=== PATIENT | female | born 1965 | race Caucasian/White ===

== ENCOUNTER → 2018-07-01 | Day surgery (SDC) | payer BC ==
[2018-05-29 12:28] LABS: BASOPHILS # (AUTO) 0.1 (0.0-0.1); BASOPHILS % 0.7 % (0.0-1.0); EOSINOPHILS # (AUTO) 0.2 (0.0-0.4); EOSINOPHILS % 1.8 % (0.0-6.0); HEMATOCRIT 45.9 % (34.2-44.1); HEMOGLOBIN 15.5 g/dL (12.0-16.0); LYMPHOCYTES % 43.4 % (18.0-39.1); MEAN CORPUSCULAR HEMOGLOBIN 32.5 pg (28-32); MEAN CORPUSCULAR HGB CONC 33.8 g/dL (31-35); MEAN CORPUSCULAR VOLUME 96.2 fL (81-99); MONOCYTES # (AUTO) 0.6 (0.2-0.8); MONOCYTES % 6.4 % (4.4-11.3); NEUTROPHILS # (AUTO) 4.4 (2.1-6.9); NEUTROPHILS % 47.5 % (38.7-80.0); PLATELET COUNT 277 x10e3/uL (140-360); RED BLOOD COUNT 4.77 x10e6/uL (3.6-5.1); RED CELL DISTRIBUTION WIDTH 13.2 % (11.7-14.4)
[~2018-07-01] MED LIST: ALBUTEROL0.63 MG/3 INH; CLONAZEPAM0.5 MG PO; FENTANYL CITRATE/PF 100MCG/2 ML INJ ONE; GLUCAGON FOR INJ 1 MG VIAL ONE; HYOSCYAMINE SULFATE 0.5 MG/ML INJ ONE; KETAMINE HCL INJ 50 MG/ML 10 ML VIAL ONE; LOVASTATIN40 MG PO; METFORMIN HCL500 MG PO; MIDAZOLAM HCL 5 MG/ML VIAL ONE; NORCO 7.5-3251 EACH PO; PROMETHAZINE HC25 M1 PO; PROPOFOL IV EMULSION 10 MG/ML 50 ML VIAL ONE; VICODIN PO
[2018-07-01 11:50] VITALS: BP 140/85
--- NOTE | 2018-07-01 12:25 | Operative Report ---
DATE OF PROCEDURE: 07/01/2018 SURGEON: Catracho Enrique MD PROCEDURES: Esophagogastroduodenoscopy with biopsies and colonoscopy with polypectomy and biopsies. INDICATIONS FOR EGD: Heartburn, bloating. INDICATIONS FOR COLONOSCOPY: Colorectal cancer screening. MEDICATIONS: The patient was done under MAC, please see anesthesiologist's note. PROCEDURE IN DETAIL: With the patient in left lateral decubitus position, the flexible fiberoptic Olympus gastroscope was introduced into the esophagus under direct visualization without any difficulty. There was a minute nodule noted in the cervical esophagus and was biopsied. There was some patchy erythema noted in distal esophagus. The scope was then advanced with ease into the stomach. Mucosa overlying the antrum and the body revealed some patchy erythema and low-grade to moderate edema and biopsies were obtained and sent to stain for H pylori. Pylorus appeared to be of normal contour and shape, was intubated with ease and the scope was advanced all the way to the second portion of the duodenum. Biopsies were obtained from the proximal second portion and duodenal bulb to rule out sprue. The scope was then withdrawn back into the stomach and retroflexed and mucosa overlying the fundus and cardia appeared to be within normal limits. The scope was then straightened out. The stomach was decompressed. Scope was subsequently withdrawn. The patient tolerated the procedure well. IMPRESSION: 1. Minute nodule in the cervical esophagus, biopsied. 2. Distal esophagitis. 3. Gastritis, biopsied. Biopsies sent to stain for Helicobacter pylori. 4. Rule out sprue. PLAN: Follow up histology. Initiate Protonix 40 mg one p.o. q.a.m. a.c. PROCEDURE IN DETAIL: The patient was then turned around after adequate lubrication of the anal canal, flexible fiberoptic Olympus colonoscope was inserted into the rectum with ease and advanced all the way to the cecum. The scope was then withdrawn slowly. Mucosa overlying the cecum, ascending colon, and transverse colon appeared to be within normal limits. Diverticular disease was noted to involve the descending and the sigmoid colon. The sigmoid colon was excessively spastic and irritable and could not distend adequately despite optimal air insufflation and administration or spasmodic agents. Overlying mucosa revealed some patchy erythema and [id number] edema and biopsies were obtained. Similar findings were noted in the proximal rectum. Biopsies were obtained. One polyp was snared from the sigmoid and one polyp was hot biopsied from the distal rectum. The scope was then retroflexed into the distal rectum and small internal hemorrhoids were noted, none of which was actively bleeding. The scope was then straightened out, it was subsequently withdrawn. The patient tolerated the procedure well. IMPRESSION: 1. Diverticulosis. 2. Proctosigmoiditis, mild. 3. Sigmoid colon polyp, snared. 4. Rectal polyp, hot biopsied. 5. Internal hemorrhoids, none actively bleeding. PLAN: Follow up histology. Initiate VSL#3 one p.o. daily and Bentyl 10 mg one p.o. t.i.d. The patient might benefit from a followup colonoscopy in 3 to 5 years. Catracho Enrique MD [facility] [place][id number] cc: Enrique Booth DO
--- OUTSIDE RECORDS SUMMARY | 2018-07-03 14:04 | XMS REPORT | Summary of Care ---
Author Organization Unknown Address Unknown Phone Unavailable Encounter HQ Encntr_alias(ROLANDA) [id number] Date(s): 08/22/13 - 08/22/13 [facility] Outpatient Imaging - [address] [address] [place] Discharge Disposition: Home Physician Attending: Jeovanny Sandres MD Reason for Visit 724.5 - BACKACHE NOS Problem List No data available for this section Allergies, Adverse Reactions, Alerts No data available for this section Medications No data available for this section Medications Administered During Your Visit No data available for this section Immunizations No data available for this section
--- OUTSIDE RECORDS SUMMARY | 2018-07-03 14:04 | XMS REPORT | Summary of Care ---
Author Organization Unknown Address Unknown Phone Unavailable Encounter HQ Encntr_alias([facility]) [id number] Date(s): 07/03/14 - 07/03/14 [facility] Outpatient Imaging - [address] [address] [phone] Discharge Disposition: Home Physician Attending: Jeovanny Sanders MD Vital Signs No data available for this section Problem List No data available for this section Allergies, Adverse Reactions, Alerts No data available for this section Medications No data available for this section Results No data available for this section Immunizations No data available for this section Procedures No data available for this section Social History No data available for this section Assessment and Plan No data available for this section
--- OUTSIDE RECORDS SUMMARY | 2018-07-03 14:04 | XMS REPORT | Clinical Summary ---
Author Author [facility] Address Unknown Phone Unavailable Care Team Providers Care Service Agent Name Role Phone Asked, No Pcp PCP Unavailable Allergies No Known Allergies Medications End Date Status Medication Sig Dispensed Refills Start Date Active metFORMIN (GLUCOPHAGE) Take 500 mg 0 500 mg tablet by mouth nightly. Active lovastatin (MEVACOR) 40 Take 40 mg by 0 MG tablet mouth nightly. Active clonAZEPAM (KlonoPIN) 0.5 Take 0.5 mg 0 MG tablet by mouth nightly. Active DOCOSAHEXANOIC ACID/EPA Take 1,200 mg 0 (FISH OIL ORAL) by mouth every morning. Active albuterol (ACCUNEB) 1.25 Take 1 ampule 0 mg/3 mL nebulizer by solution nebulization as needed for wheezing. Active etodolac (LODINE) 400 MG TK 1 T PO BID 0 tablet FOR 15 DAYS 8 PRF PAIN 08/10/2017 Discontinued mupirocin (BACTROBAN) 2 % Apply to both 22 g 0 ointment nostrils 8 twice a day starting 2 days prior to surgery and morning of surgery 07/28/2017 aspirin (ECOTRIN) 325 MG Take 1 tablet 60 tablet 0 enteric coated tablet (325 mg 8 total) by mouth 2 (two) times a day for 30 days. 07/16/2017 cyclobenzaprine Take 1 tablet 30 tablet 0 (FLEXERIL) 10 mg tablet (10 mg total) 8 by mouth 2 (two) times a day as needed for muscle spasms for up to 15 days. 07/13/2017 acetaminophen-codeine Take 1 tablet 30 tablet 0 (TYLENOL WITH CODEINE #3) by mouth 8 300-30 mg per tablet every 6 (six) hours as needed for moderate pain for up to 7 days. 07/31/2017 Discontinued acetaminophen-codeine Take 1-2 30 tablet 0 (TYLENOL WITH CODEINE #3) tablets by 8 300-30 mg per tablet mouth every 6 (six) hours as needed for moderate pain for up to 10 days. 08/10/2017 Discontinued acetaminophen-codeine Take 1-2 30 tablet 0 (TYLENOL WITH CODEINE #3) tablets by 8 300-30 mg per tablet mouth every 6 (six) hours as needed for moderate pain for up to 10 days. 09/09/2017 aspirin 81 mg chewable Chew 1 tablet 60 tablet 0 tablet (81 mg total) 8 2 (two) times a day for 30 days. 09/09/2017 docusate sodium (COLACE) Take 1 60 capsule 0 100 MG capsule capsule (100 8 mg total) by mouth 2 (two) times a day for 30 days. 09/09/2017 cyclobenzaprine Take 1 tablet 30 tablet 0 (FLEXERIL) 10 mg tablet (10 mg total) 8 by mouth 3 (three) times a day as needed for muscle spasms for up to 30 days. 09/04/2017 acetaminophen-codeine Take 1-2 30 tablet 0 (TYLENOL WITH CODEINE #3) tablets by 8 300-30 mg per tablet mouth every 6 (six) hours as needed for moderate pain for up to 10 days. 09/12/2017 Discontinued acetaminophen-codeine Take 1-2 30 tablet 0 (TYLENOL WITH CODEINE #3) tablets by 8 300-30 mg per tablet mouth every 6 (six) hours as needed for moderate pain for up to 10 days. 09/25/2017 Discontinued acetaminophen-codeine Take 1 tablet 30 tablet 0 (TYLENOL WITH CODEINE #3) by mouth 8 300-30 mg per tablet every 6 (six) hours as needed for moderate pain for up to 10 days. 10/06/2017 Discontinued acetaminophen-codeine Take 1 tablet 30 tablet 0 (TYLENOL WITH CODEINE #3) by mouth 8 300-30 mg per tablet every 6 (six) hours as needed for moderate pain for up to 10 days. 10/17/2017 Discontinued acetaminophen-codeine Take 1 tablet 30 tablet 0 (TYLENOL WITH CODEINE #3) by mouth 8 300-30 mg per tablet every 6 (six) hours as needed for moderate pain for up to 10 days. 10/31/2017 Discontinued acetaminophen-codeine Take 1 tablet 30 tablet 0 201 (TYLENOL WITH CODEINE #3) by mouth 8 300-30 mg per tablet every 6 (six) hours as needed for moderate pain for up to 10 days. 11/01/2017 Discontinued acetaminophen-codeine Take 1 tablet 30 tablet 0 (TYLENOL WITH CODEINE #3) by mouth 8 300-30 mg per tablet every 6 (six) hours as needed for moderate pain for up to 10 days. 11/11/2017 acetaminophen-codeine Take 1 tablet 30 tablet 0 (TYLENOL WITH CODEINE #3) by mouth 8 300-30 mg per tablet every 6 (six) hours as needed for moderate pain for up to 10 days. 11/24/2017 acetaminophen-codeine Take 1 tablet 30 tablet 0 (TYLENOL WITH CODEINE #3) by mouth 8 300-30 mg per tablet every 6 (six) hours as needed for moderate pain for up to 10 days. 12/13/2017 traMADol (ULTRAM) 50 mg Take 1 tablet 40 tablet 0 tablet (50 mg total) 8 by mouth every 6 (six) hours as needed for moderate pain for up to 14 days. 01/21/2018 cyclobenzaprine Take 1 tablet 40 tablet 3 (FLEXERIL) 10 mg tablet (10 mg total) 8 by mouth 2 (two) times a day as needed for muscle spasms for up to 30 days. 12/29/2017 amoxicillin (AMOXIL) 500 Take 4 12 capsule 2 MG capsule capsules 1 8 hour prior to dental appt. Active Problems Problem Noted Date Arthritis of left hip 08/07/2017 Arthritis of right hip 06/24/2017 Encounters Care Team Description Date Type Specialty Jaguar Cuellar MD Status post left hip replacement (Primary Dx) 12/22/2017 Office Visit Orthopedic Surgery Aspen Chamorro MA 12/22/2017 Orders Only Orthopedic Surgery Aspen Chamorro MA 12/22/2017 Orders Only Orthopedic Surgery Aspen Chamorro, MARBELLA Left hip pain (Primary Dx) 12/22/2017 Orders Only Orthopedic Surgery Kacey Flores, MARBELLA 2017 Orders Only Orthopedic Surgery IncJaguar alas MD 11/25/2017 Refill Orthopedic Surgery Kacey Flores, MARBELLA 11/14/2017 Orders Only Orthopedic Surgery IncJaguar alas MD 11/14/2017 Refill Orthopedic Surgery Kacey Flores, MARBELLA 11/01/2017 Orders Only Orthopedic Surgery IncJaguar alas MD 10/31/2017 Refill Orthopedic Surgery IncJaguar alas MD 10/28/2017 Refill Orthopedic Surgery IncJaguar alas MD 10/28/2017 Refill Orthopedic Surgery Jaguar Cuellar MD 10/27/2017 Refill Orthopedic Surgery IncJaguar alas MD 10/17/2017 Refill Orthopedic Surgery IncJaguar alas MD 10/06/2017 Refill Orthopedic Surgery IncJaguar alas MD 09/25/2017 Refill Orthopedic Surgery Jaguar Cuellar MD Status post left hip replacement (Primary Dx) 09/16/2017 Office Visit Orthopedic Surgery Jaguar Cuellar MD 09/12/2017 Refill Orthopedic Surgery Aspen Chamorro MA 09/02/2017 Orders Only Orthopedic Surgery Jaguar Cuellar MD 09/01/2017 Refill Orthopedic Surgery Jaguar Cuellar MD Status post left hip replacement (Primary Dx) 08/25/2017 Office Visit Orthopedic Surgery Aspen Chamorro MA 08/25/2017 Orders Only Orthopedic Surgery Jaguar Cuellar MD ARTHROPLASTY, HIP, TOTAL 08/09/2017 Surgery Orthopedic Surgery Radha Harrison, SOLUTIONS CONSULTANT 08/09/2017 Anesthesia Orthopedic Surgery Event Jaguar Cuellar MD Arthritis of left hip 08/09/2017 Hospital Orthopedic Surgery - Encounter 08/10/2017 Jaguar Cuellar MD Preop examination (Primary Dx) 08/02/2017 Pre-Admit Pre-Admission Testing Testing Appointment Jaguar Cuellar MD 07/31/2017 Refill Orthopedic Surgery Jaguar Cuellar MD Status post right hip replacement (Primary Dx) 07/21/2017 Office Visit Orthopedic Surgery Aspen Chamorro MA 07/21/2017 Orders Only Orthopedic Surgery Kacey Flores MA 07/06/2017 Orders Only Orthopedic Surgery after 07/02/2017 Social History Date Tobacco Use Types Packs/Day Years Used Current Every Day Smoker Cigarettes 1 20 Smokeless Tobacco: Never Used Tobacco Cessation: Ready to Quit: No; Counseling Given: No Comments: declined education materials Alcohol Use Drinks/Week oz/Week Comments No Sex Assigned at Date Recorded Not on file Industry Job Start Date Occupation Not on file Not on file Not on file Travel End Travel History Travel Start No recent travel history available. Last Filed Vital Signs Time Taken Vital Sign Reading 08/10/2017 8:40 AM CDT Blood Pressure 119/79 08/10/2017 8:40 AM CDT Pulse 96 08/10/2017 7:45 AM CDT Temperature 36.7 C (98.1 F) 08/10/2017 7:45 AM CDT Respiratory Rate 19 08/10/2017 8:40 AM CDT Oxygen Saturation 99% - Inhaled Oxygen - Concentration 08/25/2017 10:14 AM CDT Weight 84.4 kg (186 lb) 08/25/2017 10:14 AM CDT Height 175.3 cm (5' 9") 08/25/2017 10:14 AM CDT Body Mass Index 27.47 Plan of Treatment Health Maintenance Due Date Last Done Comments CERVICAL CANCER SCREENING 11/28/1988 BREAST CANCER SCREENING 11/28/2017 COLON CANCER SCREENING 11/28/2017 SHINGLES VACCINES (#1) 11/28/2017 INFLUENZA VACCINE 10/26/2018 Implants Device Identifier Shelf Expiration Date Model / Serial / Lot Implanted Type Area Manufactur er 05/23/2027 [id number] / / [id number] Shell [employer] Acetabular 54 - IPM Right: Hip BIOMET, [id number] [employer] Implanted: 06/27/2017 (Quantity not DEVICES on file) 02/09/2022 [id number] / / [id number] G7 Neutral E1 Liner 36mm F - IPM Right: Hip BIOMET, [id number] [employer] Implanted: 06/27/2017 (Quantity not DEVICES on file) 06/22/2026 [id number] / / [id number] Tprlc 133 Type1 Pps Ho 12.0, IPM Right: Hip BIOMET, Taperloc Complete Stem - [id number] [employer] Implanted: 06/27/2017 (Quantity not DEVICES on file) 12/02/2026 [id number] / / [id number] Cer Bioloxd Mod Hd 36mm -3 Nk - IPM Right: Hip BIOMET, [id number] [employer] Implanted: 06/27/2017 (Quantity not DEVICES on file) 06/27/2027 [id number] / / [id number] Shell [employer] Acetabular 54 - IPM Left: Hip BIOMET, [id number] [employer] Implanted: Qty: 1 on 08/09/2017 by Jaguar Smalls MD 06/15/2022 [id number] / / [id number] G7 Neutral E1 Liner 36mm F - IPM Left: Hip BIOMET, [id number] [employer] Implanted: Qty: 1 on 08/09/2017 by Jaguar Smalsl MD 09/02/2025 [id number] / / [id number] Tprlc 133 Type1 Pps Ho 12.0, IPM Left: Hip BIOMET, Taperloc Complete Stem - [id number] [employer] Implanted: Qty: 1 on 08/09/2017 by Jaguar Smalls MD 12/30/2026 [id number] / / [id number] Cer Bioloxd Mod Hd 36mm -3 Nk - IPM Left: Hip BIOMET, [id number] [employer] Implanted: Qty: 1 on 08/09/2017 by Jaguar Smalls MD 02/24/2027 [id number] / / [id number] Screw Bone Slf-Tap 6.5x20mm Trilogy Orthopedic Right: Hip [employer] - [id number] Trauma Implanted: Qty: 2 on 06/27/2017 by Jaguar Figueroa MD 03/27/2027 [id number] / / [id number] Screw Bone Slf-Tap 6.5x20mm Trilogy Orthopedic Left: Hip [employer] - [id number] Trauma Implanted: Qty: 1 on 08/09/2017 by Jaguar Figueroa MD 06/26/2027 [id number] / / [id number] Screw Bone Slf-Tap 6.5x20mm Trilogy Orthopedic Left: Hip [employer] - [id number] Trauma Implanted: Qty: 1 on 08/09/2017 by Jaguar Figueroa MD 06/26/2027 [id number] / / [id number] Screw Bone Slf-Tap 6.5x25mm Trilogy Orthopedic Left: Hip [employer] - [id number] Trauma Implanted: Qty: 1 on 08/09/2017 by Jaguar Figueroa MD Procedures Comments Procedure Name Priority Date/Time Associated Diagnosis XR HIP 2-3 VIEWS LEFT Routine 12/22/2017 Left hip pain 10:17 AM CDT CBC WITH PLATELET AND Routine 08/10/2017 DIFFERENTIAL 6:00 AM CDT ZZESTIMATED GFR Routine 08/10/2017 4:00 AM CDT PHOSPHORUS LEVEL Routine 08/10/2017 4:00 AM CDT MAGNESIUM LEVEL Routine 08/10/2017 4:00 AM CDT BASIC METABOLIC PANEL Routine 08/10/2017 4:00 AM CDT POC GLUCOSE Routine 08/09/2017 1:[address] AN ELECTIVE Routine 08/09/2017 ENDOTRACHEAL AIRWAY 1:45 PM CDT Procedure Note - Shakila Reyes, ANCHORMAN - 08/09/2017 1:45 PM CDT Airway Date/Time: 08/09/2017 10:35 AM Performed by: SHAKILA REYES Authorized by: JANEE DAVILA Location: OR Urgency: Elective Difficult Airway: No Preoxygena shaye with 100% O2: Yes C-spine Precaution s Maintained Throughout : Yes Mask Ventilatio n: Easy mask Final Airway Type: Endotrache al airway Final Endotrache al Airway: ETT Cuffed: Yes Technique Used: Direct laryngosco py Devices/Me thods Used in Placement: Intubatin g stylet Insertion Site: Oral Laryngosco pe Blade/Vide olaryngosc ope Blade Size: 2 ETT Size (mm): 7.0 Cuff at minimum occlusion pressure: Yes Measured from: Teeth ETT to Teeth (cm): 21 Placement Verified by: CO2 detection, direct visualizat ion and equal breath sounds Laryngosco pic view: Grade I - full view of glottis Rapid Sequence Induction (RSI): No Modified RSI: No Number of Attempts at Approach: 1 Easy atraumatic XR PELVIS 1 OR 2 VW Routine 08/09/2017 12:15 PM CDT SURGICAL PATHOLOGY Routine 08/09/2017 REQUEST 11:50 AM CDT POC GLUCOSE Routine 08/09/2017 11:37 AM CDT XR PELVIS 1 OR 2 VW Routine 08/09/2017 11:11 AM CDT ARTHROPLASTY, HIP, TOTAL 08/09/2017 Arthritis of left hip 10:30 AM CDT ANESTHESIA SPINAL BLOCK Routine 08/09/2017 10:04 AM CDT Procedure Note - Janee Davila MD - 08/09/2017 10:04 AM CDT Spinal Block Performed by: JANEE DAVILA Authorized by: JANEE DAVILA Patient Location: Pre-op Start Time: 08/09/2017 9:59 AM End Time: 08/09/2017 10:02 AM Reason for Block: at surgeon's request Staff: Anesthesio logist: JANEE DAVILA Performed by: Anesthesio logist patient identified , IV checked, site and side verified, risks and benefits discussed, procedure verified, surgical consent complete, patient position confirmed, monitors and equipment checked and pre-op evaluation complete TIme Out Performed: 08/09/2017 9:55 AM Spinal Block: Patient Position: Sitting Prep: Betadine Monitoring : Blood pressure monitoring , continuous pulse oximetry and heart rate Approach: Midline Interspace : L3-4 Injection Technique: Single injection Needle: Needle Type: Pencil-tip Needle Gauge: 25 G Assessment : Coagulatio n status: Coagulatio n status verified Block assessment : No apparent complicati ons and patient tolerated procedure well Notes: X 1 attempt @ 5cm POC GLUCOSE Routine 08/09/2017 9:38 AM CDT URINALYSIS SCREEN AND Routine 08/02/2017 MICROSCOPY, WITH REFLEX 3:25 PM CDT TO CULTURE ZZESTIMATED GFR Routine 08/02/2017 3:22 PM CDT CBC HEMOGRAM Routine 08/02/2017 Preop examination 3:22 PM CDT TYPE AND SCREEN Routine 08/02/2017 Preop examination 3:22 PM CDT BASIC METABOLIC PANEL Routine 08/02/2017 Preop examination 3:22 PM CDT URINE CULTURE Routine 08/02/2017 3:05 PM CDT after 07/02/2017 Results * XR Hip 2-3 View Left (12/22/2017 10:17 AM CDT) Narrative Performed At [facility] Hip x-rays show bilateral hip arthroplasties in place. All components appear stable. Performing Organization Address City/State/Zipcode Phone Number [facility] [address] [place] [address] * CBC with platelet and differential (08/10/2017 6:00 AM CDT) WBC 15.14 (H) 4.50 - 11.00 k/uL [facility] DEPARTMENT OF PATHOLOGY AND GENOMIC MEDICINE RBC 3.82 (L) 4.20 - 5.50 m/uL [facility] DEPARTMENT OF PATHOLOGY AND GENOMIC MEDICINE HGB 12.4 12.0 - 16.0 g/dL [facility] DEPARTMENT OF PATHOLOGY AND GENOMIC MEDICINE HCT 37.5 37.0 - 47.0 % [facility] DEPARTMENT OF PATHOLOGY AND GENOMIC MEDICINE MCV 98.2 82.0 - 100.0 fL [facility] DEPARTMENT OF PATHOLOGY AND GENOMIC MEDICINE MCH 32.5 27.0 - 34.0 pg [facility] DEPARTMENT OF PATHOLOGY AND GENOMIC MEDICINE MCHC 33.1 31.0 - 37.0 g/dL [facility] DEPARTMENT OF PATHOLOGY AND GENOMIC MEDICINE RDW - SD 47.9 37.0 - 55.0 fL [facility] DEPARTMENT OF PATHOLOGY AND GENOMIC MEDICINE MPV 10.2 8.8 - 13.2 fL [facility] DEPARTMENT OF PATHOLOGY AND GENOMIC MEDICINE Platelet count 272 150 - 400 k/uL [facility] DEPARTMENT OF PATHOLOGY AND GENOMIC MEDICINE Nucleated RBC 0.00 /100 WBC [facility] DEPARTMENT OF PATHOLOGY AND GENOMIC MEDICINE Neutrophils 70.1 (H) 39.0 - 69.0 % [facility] DEPARTMENT OF PATHOLOGY AND GENOMIC MEDICINE Lymphocytes 20.9 (L) 25.0 - 45.0 % [facility] DEPARTMENT OF PATHOLOGY AND GENOMIC MEDICINE Monocytes 8.4 0.0 - 10.0 % [facility] DEPARTMENT OF PATHOLOGY AND GENOMIC MEDICINE Eosinophils 0.0 0.0 - 5.0 % [facility] DEPARTMENT OF PATHOLOGY AND GENOMIC MEDICINE Basophils 0.1 0.0 - 1.0 % [facility] DEPARTMENT OF PATHOLOGY AND GENOMIC MEDICINE Immature granulocytes 0.5Comment: "Immature 0.0 - 1.0 % [facility] DEPARTMENT OF granulocytes" (promyelocytes, PATHOLOGY AND myelocytes, metamyelocytes) GENOMIC MEDICINE Specimen Blood Performing Organization Address City/[facility] [place] [address] [facility] * Estimated GFR (08/10/2017 4:00 AM CDT) Only the most recent of 2 results within the time period is included. GFR Non Af Amer >90 mL/min/1.73 m2 [facility] DEPARTMENT OF PATHOLOGY AND GENOMIC MEDICINE GFR Af Amer >90 mL/min/1.73 m2 [facility] DEPARTMENT OF Comment: PATHOLOGY AND Chronic kidney disease: <60 GENOMIC MEDICINE mL/min/1.73m2 Kidney failure: <15 mL/min/1.73m2 The estimated GFR is calculated from the IDMS-traceable Modification of Diet in Renal Disease Equation. The accuracy of the calculation is poor when the creatinine is normal. Calculated values >90 mL/min/1.73m2 are not reported. This equation has not been validated in children (<18 years), women, the elderly (>70 years), or ethnic groups other than Caucasians and Americans. Specimen Plasma specimen Performing Organization Address City/[facility]/Zipcode Phone Number [address] * Phosphorus level (08/10/2017 4:00 AM CDT) Phosphorus 2.7 2.4 - 4.5 mg/dL [facility] DEPARTMENT PATHOLOGY AND [employer] MEDICINE Specimen Plasma specimen Performing Organization Address City/[facility]/Zipcode Phone Number [place] [address] PATHOLOGY AND GENOMIC MEDICINE * Magnesium level (08/10/2017 4:00 AM CDT) Magnesium 2.0 1.6 - 2.6 mg/dL [facility] DEPARTMENT OF PATHOLOGY AND GENOMIC MEDICINE Specimen Plasma specimen Performing Organization Address City/[facility] [place] [place] [address] PATHOLOGY AND GENOMIC MEDICINE * Basic metabolic panel (08/10/2017 4:00 AM CDT) Only the most recent of 2 results within the time period is included. Sodium 137 135 - 148 mEq/L [facility] DEPARTMENT OF PATHOLOGY AND GENOMIC MEDICINE Potassium 4.4 3.5 - 5.0 mEq/L [facility] DEPARTMENT OF PATHOLOGY AND GENOMIC MEDICINE Chloride 102 98 - 112 mEq/L [facility] DEPARTMENT OF PATHOLOGY AND GENOMIC MEDICINE CO2 23 (L) 24 - 31 mEq/L [facility] DEPARTMENT OF PATHOLOGY AND GENOMIC MEDICINE Anion gap 12@ANIO 7 - 15 mEq/L [facility] DEPARTMENT OF PATHOLOGY AND GENOMIC MEDICINE BUN 8 6 - 20 mg/dL [facility] DEPARTMENT OF PATHOLOGY AND GENOMIC MEDICINE Creatinine 0.6 0.5 - 0.9 mg/dL [facility] DEPARTMENT OF PATHOLOGY AND GENOMIC MEDICINE Glucose 179 (H) 65 - 99 mg/dL [facility] DEPARTMENT OF PATHOLOGY AND GENOMIC MEDICINE Calcium 8.6 8.3 - 10.2 mg/dL [facility] DEPARTMENT OF PATHOLOGY AND GENOMIC MEDICINE Specimen Plasma specimen Performing Organization Address [facility] [place] [address] PATHOLOGY AND GENOMIC MEDICINE * POC glucose (08/09/2017 1:48 PM CDT) Only the most recent of 3 results within the time period is included. POC glucose 157 (H) 65 - 99 mg/dL [facility] DEPARTMENT OF Comment: PATHOLOGY AND [facility] Notified RN GENOMIC MEDICINE Meter ID: [id number] ?Brass Molder Helper: Name not found in RALS Performing Organization Address City/[facility] [place] [address] PATHOLOGY AND GENOMIC MEDICINE * XR Pelvis 1 Or 2 Vw (08/09/2017 12:15 PM CDT) Only the most recent of 2 results within the time period is included. Narrative Performed At EXAMINATION:XR PELVIS 1 OR 2 VW [facility] CLINICAL HISTORY:Post Op COMPARISON:None. FINDINGS: Postoperative exam demonstrates placement of a right hip replacement. Fracture is not identified. Left hip replacement is noted as well. IMPRESSION: Postoperative exam. [facility]-[id number] Procedure Note Hm Interface, Radiology Results Incoming - 08/09/2017 1:09 PM CDT EXAMINATION: XR PELVIS 1 OR 2 VW CLINICAL HISTORY: Post Op COMPARISON: None. FINDINGS: Postoperative exam demonstrates placement of a right hip replacement. Fracture is not identified. Left hip replacement is noted as well. IMPRESSION: Postoperative exam. [facility]-[id number] Performing Organization Address City/[facility] Phone Number [facility] [address] [place] [address] * Surgical pathology request (08/09/2017 11:50 AM CDT) [facility] DEPARTMENT OF PATHOLOGY AND GENOMIC MEDICINE Surgical pathology report See link below for PDF Lab [facility] DEPARTMENT OF Report PATHOLOGY AND GENOMIC MEDICINE Result status This is Final Report to [facility] DEPARTMENT OF [id number] PATHOLOGY AND GENOMIC MEDICINE Performing Organization Address [facility] Phone Number [facility] DEPARTMENT OF [address] [place], [place] [id number] PATHOLOGY AND GENOMIC MEDICINE * Urinalysis screen and microscopy, with reflex to culture (08/02/2017 3:25 PM CDT) Specimen site Random void [facility] DEPARTMENT OF PATHOLOGY AND GENOMIC MEDICINE Color, UA Yellow [facility] DEPARTMENT OF PATHOLOGY AND GENOMIC MEDICINE Appearance, UA Clear [facility] DEPARTMENT OF PATHOLOGY AND GENOMIC MEDICINE Specific gravity, UA 1.020 1.001 - 1.035 [facility] DEPARTMENT OF PATHOLOGY AND GENOMIC MEDICINE pH, UA 5.0 5.0 - 8.5 [facility] DEPARTMENT OF PATHOLOGY AND GENOMIC MEDICINE Protein, UA Negative Negative [facility] DEPARTMENT OF PATHOLOGY AND GENOMIC MEDICINE Glucose, UA Negative Negative [facility] DEPARTMENT OF PATHOLOGY AND GENOMIC MEDICINE Ketones, UA Negative Negative [facility] DEPARTMENT OF PATHOLOGY AND GENOMIC MEDICINE Bilirubin, UA Negative Negative [facility] DEPARTMENT OF PATHOLOGY AND GENOMIC MEDICINE Blood, UA Negative Negative [facility] DEPARTMENT OF PATHOLOGY AND GENOMIC MEDICINE Nitrite, UA Negative Negative [facility] DEPARTMENT OF PATHOLOGY AND GENOMIC MEDICINE Urobilinogen, UA <2.0 <2.0 [facility] DEPARTMENT OF PATHOLOGY AND GENOMIC MEDICINE Leukocyte esterase, UA Negative Negative [facility] DEPARTMENT OF PATHOLOGY AND GENOMIC MEDICINE Epithelial cells, UA 3 /HPF [facility] DEPARTMENT OF PATHOLOGY AND GENOMIC MEDICINE WBC, UA 1 0 - 4 /HPF [facility] DEPARTMENT OF PATHOLOGY AND GENOMIC MEDICINE RBC, UA 1 0 - 5 /HPF [facility] DEPARTMENT OF PATHOLOGY AND GENOMIC MEDICINE Bacteria, UA Few None seen [facility] DEPARTMENT OF PATHOLOGY AND GENOMIC MEDICINE Yeast, UA None seen [facility] DEPARTMENT OF PATHOLOGY AND GENOMIC MEDICINE Yeast with pseudohyphae, None seen [facility] DEPARTMENT OF PATHOLOGY AND GENOMIC MEDICINE Specimen Urine Performing Organization Address City/[facility]/[place] [address] PATHOLOGY AND GENOMIC MEDICINE * CBC hemogram (08/02/2017 3:22 PM CDT) WBC 9.62 4.50 - 11.00 k/uL [facility] DEPARTMENT OF PATHOLOGY AND GENOMIC MEDICINE RBC 4.62 4.20 - 5.50 m/uL [facility] DEPARTMENT OF PATHOLOGY AND GENOMIC MEDICINE HGB 14.6 12.0 - 16.0 g/dL [facility] DEPARTMENT OF PATHOLOGY AND GENOMIC MEDICINE HCT 44.4 37.0 - 47.0 % [facility] DEPARTMENT OF PATHOLOGY AND GENOMIC MEDICINE MCV 96.1 82.0 - 100.0 fL [facility] DEPARTMENT OF PATHOLOGY AND GENOMIC MEDICINE MCH 31.6 27.0 - 34.0 pg [facility] [facility] DEPARTMENT OF PATHOLOGY AND GENOMIC MEDICINE MCHC 32.9 31.0 - 37.0 g/dL [facility] DEPARTMENT OF PATHOLOGY AND GENOMIC MEDICINE RDW - SD 47.5 37.0 - 55.0 fL [facility] DEPARTMENT OF PATHOLOGY AND GENOMIC MEDICINE MPV 10.3 8.8 - 13.2 fL [facility] DEPARTMENT OF PATHOLOGY AND GENOMIC MEDICINE Platelet count 312 150 - 400 k/uL [facility] DEPARTMENT OF PATHOLOGY AND GENOMIC MEDICINE Nucleated RBC 0.00 /100 WBC [facility] DEPARTMENT OF PATHOLOGY AND GENOMIC MEDICINE Specimen Blood Performing Organization Address City/[facility] Phone Number [facility] DEPARTMENT [address] [address] PATHOLOGY AND GENOMIC MEDICINE * Type and screen (08/02/2017 3:22 PM CDT) ABO grouping A [facility] DEPARTMENT OF PATHOLOGY AND GENOMIC MEDICINE Rh type NEG [facility] DEPARTMENT OF PATHOLOGY AND GENOMIC MEDICINE Antibody screen (gel) NEG [facility] DEPARTMENT OF PATHOLOGY AND GENOMIC MEDICINE Specimen Blood Performing Organization Address City/[facility]/Zipcode Phone Number [address] [address] PATHOLOGY AND GENOMIC MEDICINE * Urine culture (08/02/2017 3:05 PM CDT) Urine culture SEE COMMENTComment: [facility] DEPARTMENT OF Bacteriuria screen negative. PATHOLOGY AND GENOMIC MEDICINE Performing Organization Address City/State/Zipcode Phone Number [facility] DEPARTMENT OF [address] [place] [address] PATHOLOGY AND GENOMIC MEDICINE after 07/02/2017 Insurance Payer Benefit Subscriber ID Type Phone Address Plan / Group BCBS BCBS xxxxxxxxx PPO CHOICE PPO/HALE[employer]ETT PPO Advance Directives Patient has advance care planning documents on file. For more information, inge snell contact: Henrik Mejia [address] [place] [address]
--- OUTSIDE RECORDS SUMMARY | 2018-07-03 14:04 | XMS REPORT | Continuity of Care Document ---
Author Author Maira glo [facility] Interface Address Unknown Phone Unavailable Problems Problem Status Onset Date Classification Date Reported Comments Source Medications Medication Details Route Status Patient Instructions Ordering Provider Order Date Source Allergies, Adverse Reactions, Alerts Substance Category Reaction Severity Reaction type Status Date Reported Comments Source Immunizations Immunization Date Given Site Status Last Updated Comments Source Results Order Name Results Value Reference Range Date Interpretation Comments Source Spine cervical w/wo contrast MRI Spine cervical w/wo contrast MRI MRI CERVICAL SPINE WITHOUT AND WITH CONTRAST TECHNIQUE: Multiplanar multisequence imaging of the cervical spine was performed without and with administration of intravenous gadolinium. COMPARISON: 07/03/2014 radiograph exam. FINDINGS: Multilevel disc desiccation is seen. C2-C3: Moderate right facet osteoarthritis with mild right foraminal stenosis. No central canal stenosis. C3-C4: Moderate right facet osteoarthritis and small right foraminal osteophytes are present with moderate right foraminal stenosis. Minimal disc bulge without central canal stenosis. C4-C5: Minimal disc bulge with minimal central canal stenosis. Small foraminal osteophytes present with mild left facet osteoarthritis and minimal bilateral foraminal stenosis. C5-C6: 2.3 mm broad-based central disc protrusion with mild central canal stenosis and minimal cord indentation. Right foraminal osteophytes and UVJ arthrosis are present with mild right foraminal stenosis. Left facet osteoarthritis is also present with mild left foraminal stenosis. C6-C7: 4 mm left lateral recess and subarticular zone disc osteophyte complex with significant left lateral recess stenosis and mild to moderate central canal stenosis and mass effect on the cervical cord. Severe left foraminal stenosis and mild right foraminal stenosis are present. C7-T1: Minimal left foraminal osteophytes are present with mild left foraminal stenosis. No central canal stenosis. No abnormal enhancement is identified. The cervical cord signal is unremarkable without MRI evidence of myelopathy. IMPRESSION: 1. Multilevel disc degenerative disease and spondylosis. 2. C6-C7 prominent left lateral recess and symmetrical zone disc osteophyte complex with severe left lateral recess stenosis, mild to moderate central canal stenosis, severe left foraminal stenosis and mild mass effect on the cervical cord. No MRI evidence of cervical cord myelopathy. 3. C5-C6 Central disc protrusion with mild central canal stenosis and minimal cord indentation. Other levels of mild cervical canal stenosis are present. 4. Multilevel mild to moderate foraminal stenosis. 09/20/2014 - - Read by: Felipe Carey MD Dictated Date/time: 09/20/14 16:46 Electronically Signed by: Felipe Carey MD 09/20/14 17:55 [facility] Lumbar Comp w Bend views DX Spine Lumbar Comp w Bend views DX Exam: Lumbar Spine X-ray, 5 views Reason for Exam: Back Pain Comparison Exam: MRI lumbar spine 08/22/2013 Discussion: 5 non rib-bearing lumbar vertebral bodies are seen. Vertebral body heights are maintained. No spondylolisthesis or scoliosis. Advanced degenerative disc disease seen at the L1/L2 level and L5/S1 level. Flexion and extension views are unremarkable. No suspicious osteoblastic or osteolytic lesions. Note that a lumbar spine x-ray cannot rule out ligamentous injuries or spinal cord abnormalities. No dilated loops of bowel within the visualized portions of the abdomen and pelvis. Impression: 1. Advanced degenerative disc disease seen at the L1/L2 level and L5/S1 level. 07/03/2014 - - Read by: Celm Calabrese MD Dictated Date/time: 07/03/14 14:40 Electronically Signed by: Clem Calabrese MD 07/03/14 14:42 FINAL REPORT [facility] [place] Spine cervical series DX Spine cervical series DX Exam: Cervical spine x-ray, 5views Reason for Exam: Cervicalgia Comparison Exam: None Discussion: On lateral view, the cervical spine is seen from the C1 vertebral body level down through the C7/T1 junction. Vertebral body heights are maintained. No spondylolisthesis. Moderate degenerative disc disease seen within the mid and lower cervical spine. No suspicious osteoblastic or osteolytic lesions. Prevertebral soft tissue is within normal limits. On oblique views, the neuroforamina are unremarkable. Lateral masses of C1 and dens of C2 appear intact. Please note that a cervical spine x-ray cannot rule out ligamentous injuries or spinal cord abnormalities. Visualized portions of the lung apices are unremarkable. Impression: 1. Vertebral body heights are maintained. No spondylolisthesis. Moderate degenerative disc disease seen within the mid and lower cervical spine. 07/03/2014 - - Read by: Clem Calabrese MD Dictated Date/time: 07/03/14 14:14 Electronically Signed by: Clem Calabrese MD 07/03/14 14:16 FINAL REPORT [facility] [place] Spine lumbar w/wo contrast MRI Spine lumbar w/wo contrast MRI MRI LUMBAR SPINE WITHOUT AND WITH CONTRAST TECHNIQUE: Sagittal T1, sagittal T2 with fat saturation, axial T1 and axial T2 images were obtained. Intravenous gadolinium was given. COMPARISON: No prior exam. FINDINGS: The paravertebral soft tissues are normal. The conus medullaris terminates at the L1 level. Congenital shortened lumbar pedicles are seen. L1-L2: Significant disc space narrowing is seen with dorsal disc osteophyte complex, measuring 3.5 mm in the AP dimension with mild to moderate central canal stenosis. No foraminal stenosis is identified. Anterior disc osteophyte complex is present. L2-L3: Disc bulge is present with central inferiorly migrated extrusion, measuring approximately 3.9 mm in the AP dimension. Along with the short lumbar pedicles and mild ligamenta flava redundancy, there is mild to moderate central canal stenosis. No foraminal stenosis identified. L3-L4: Right paracentral broad-based disc extrusion is present measuring 5.5 mm in the AP dimension with moderate to severe central canal stenosis. Mild ligamenta flava redundancy is seen. The lateral recesses are stenotic. No significant foraminal stenosis. L4-L5: Broad-based disc bulge is present with central protrusion component, measuring 5.5 mm in the AP dimension with moderate to severe central canal stenosis. Mild bilateral foraminal stenosis is present due to disc bulge encroachment. L5-S1: Mild dorsal disc osteophyte complex is seen with significant disc space narrowing. Laminectomy changes are present. No thecal sac stenosis is present. Posterior annular fissure is identified, and there is a nonenhancing Central disc protrusion measuring approximately 4.7 mm in the AP dimension, contacting the bilateral proximal S1 nerve root sleeves without significant mass effect. There is mild circumferential epidural granulation tissue enhancement is seen with encasement of the bilateral proximal S1 nerve root sleeves, without mass effect. Moderate bilateral foraminal stenosis is present due to the foraminal and extraforaminal osteophytes with mass effect on the bilateral L5 exiting nerve root sleeves. IMPRESSION: 1. Multilevel disc degenerative disease and spondylosis. Congenital shortened lumbar pedicles are seen. 2. L1-L2 significant degenerative changes with mild to moderate central canal stenosis. 3. L2-L3 disc bulge with central inferiorly migrated disc extrusion with mild to moderate central canal stenosis. 4. L3-L4 right paracentral disc extrusion with moderate to severe central canal stenosis. 5. L4-L5 moderate to severe central canal stenosis and mild bilateral foraminal stenosis as above. 6. L5-S1 postsurgical changes with central disc protrusion. No thecal sac stenosis present. Circumferential epidural granulation tissue present with encasement of the bilateral proximal S1 nerve root sleeves without mass effect. Moderate bilateral foraminal stenosis present as above. 08/22/2013 - - Read by: Felipe Carey MD Dictated Date/time: 08/22/13 11:27 Electronically Signed by: Felipe Carey MD 08/22/13 13:44 FINAL REPORT [facility] Vital Signs Vital Sign Value Date Comments Source Encounters Location Location Details Encounter Type Encounter Number Reason For Visit Attending Provider ADM Date DC Date Status Source [facility] [place] [facility] [id number] Jeovanny Sanders 08/22/2013 08/23/2013 TORI Clevelanda [facility] [place] [facility] [id number] Jeovanny Sanders 07/03/2014 07/04/2014 TORI Francoadena [facility] [place] [facility] [id number] Jeovanny Sanders 09/20/2014 09/21/2014 TORI Houser Procedures Procedure Code Date Perfomer Comments Source
--- OUTSIDE RECORDS SUMMARY | 2018-07-03 14:04 | XMS REPORT | Summary of Care ---
Author Organization Unknown Address Unknown Phone Unavailable Encounter [facility] Encntr_alias([facility]) [id number] Date(s): 09/20/14 - 09/20/14 [facility] Outpatient Imaging - [address] [address] [phone] Discharge Disposition: Home Physician Attending: Jeovanny Sanders [...]
== END | disposition home or self-care (01) ==
LOC: OR 06:46
PROVIDERS: ATTEND Internal Medicine Gastroenterology
DX: Z12.11 Encounter for screening for malignant neoplasm of colon (principal); K63.5 Polyp of colon; K62.1 Rectal polyp; K29.50 Unspecified chronic gastritis without bleeding; K58.9 Irritable bowel syndrome, unspecified; K22.8 Other specified diseases of esophagus; K20.9 Esophagitis, unspecified; K57.30 Diverticulosis of large intestine without perforation or abscess without bleeding; K63.89 Other specified diseases of intestine; K64.8 Other hemorrhoids; E11.9 Type 2 diabetes mellitus without complications; J45.909 Unspecified asthma, uncomplicated; F41.0 Panic disorder [episodic paroxysmal anxiety]; F17.210 Nicotine dependence, cigarettes, uncomplicated; Z01.810 Encounter for preprocedural cardiovascular examination; Z01.812 Encounter for preprocedural laboratory examination; Z79.84 Long term (current) use of oral hypoglycemic drugs
CPT/HCPCS: 36415 ×2; 43239; 45380; 45384; 45385; 82948; 85025; 93005; J1610; J1980; J2250; J2704